=== PATIENT | female | born 1995 | race Caucasian/White ===

== ENCOUNTER 2019-11-05 04:58 | Inpatient (IN) ==
[2019-11-05] MEDS ORDERED: ZOFRAN IV PRN (05:05)
[2019-11-05] MEDS ORDERED: PEPCID PO PRN ×2 (05:05)
[2019-11-05] MEDS ORDERED: STADOL IV PRN (05:05)
[2019-11-05] MEDS ORDERED: TYLENOL PO PRN (05:05)
[2019-11-05] MEDS ORDERED: REGLAN PO PRN (05:05)
[2019-11-05] MEDS ORDERED: KEFZOL 2 GM/D5W 2 GM/50 ML IVPB IV PRN (05:05)
[2019-11-05] MEDS ORDERED: PEPCID IV PRN (05:05)
[2019-11-05] MEDS ORDERED: XYLOCAINE-MPF 1% INJ ONE (05:10)
[2019-11-05] MEDS ORDERED: SODIUM CHLORIDE 0.9% INJ SCH (05:15)
[2019-11-05] MEDS ORDERED: LR 1,000 ML IV SCH (05:15)
[2019-11-05] MEDS ORDERED: XYLOCAINE-MPF 1% INJ PRN ×2 (05:35→10:55)
[2019-11-05] MEDS ORDERED: MINERAL OIL TOP PRN ×2 (05:35→10:55)
[2019-11-05 05:39] LABS: BASO# 0.02 X1000 (0.0-0.2); BASO% 0.2 % (0.0-0.8); EOS% 1.1 % (0.0-10.0); HEMATOCRIT 37.4 % (37.0-47.0); HEMOGLOBIN 12.3 g/dL (12.0-16.0); IMM GRAN# 0.03 X1000 (0.0-0.04); IMM GRAN% 0.3 % (0.0-0.5); LYMPH# 2.43 X1000 (1.2-3.4); LYMPH% 26.1 % (20.5-51.1); MCH 32.3 PG (27-31); MCHC 32.9 g/dL (33-37); MCV 98.2 FL (81-99); MONO% 6.4 % (1.7-9.3); MPV 11.4 FL (7.4-10.4); NEUT# 6.13 X1000 (1.4-6.5); NEUT% 65.9 % (42.2-75.2); PLT 170 X1000 (130-400); RBC 3.81 XMIL (4.2-5.4); RDW 13.8 % (11.5-14.5); WBC 9.31 X1000 (4.8-10.8)
[2019-11-05 05:40] LABS: URINE SOURCE VOIDED
[2019-11-05 06:02] LABS: UR AMPHETAMINES QUAL NONE DETECTED (NONE DETECT); UR BARBITUATES QUAL NONE DETECTED (NONE DETECT); UR BENZODIAZEPIN QUAL NONE DETECTED (NONE DETECT); UR CANNABINOIDS QUAL NONE DETECTED (NONE DETECT); UR COCAINE QUAL NONE DETECTED (NONE DETECT); UR METHADONE QUAL NONE DETECTED (NONE DETECT); UR OPIATES QUAL NONE DETECTED (NONE DETECT); UR OXYCODONE QUAL NONE DETECTED (NONE DETECT); UR PCP QUAL NONE DETECTED (NONE DETECT)
[2019-11-05 06:08] LABS: BILIRUBIN URINE NEGATIVE (NEGATIVE); BLOOD URINE NEGATIVE (NEGATIVE); COLOR YELLOW; GLUCOSE URINE NEGATIVE (NEGATIVE); KETONE URINE NEGATIVE (NEGATIVE); LEUKOCYTES URINE SMALL (NEGATIVE); NITRITE URINE NEGATIVE (NEGATIVE); PROTEIN URINE TRACE mg/dL (NEGATIVE); TURBIDITY URINE HAZY (CLEAR); UROBILINOGEN URINE NORMAL (NORMAL)
[2019-11-05] MEDS: PITOCIN 30 UNITS/NS 30 UNIT/500 ML IV.SOLN IV SCH ×2 (06:20→10:50)
[2019-11-05] MEDS ORDERED: FENTANYL-BUPIV-NS 500 MCG-0.125% 250 ML EPIDURAL SCH (10:00)
[2019-11-05] MEDS ORDERED: NAROPIN 0.2% INJ ONE (10:00)
[2019-11-05] MEDS ORDERED: FENTANYL IV ONE (10:00)
[2019-11-05] MEDS ORDERED: AMBIEN PO PRN (10:55)
[2019-11-05] MEDS ORDERED: CYTOTEC PO PRN (10:55)
[2019-11-05] MEDS ORDERED: MOTRIN PO PRN (10:55)
[2019-11-05] MEDS ORDERED: ATARAX PO PRN (10:55)
[2019-11-05] MEDS ORDERED: BENADRYL IV PRN (10:55)
[2019-11-05] MEDS ORDERED: PERI MEDS (DERMOPLAST/NUPERCAINAL/TUCKS) MISC PRN (10:55)
[2019-11-05] MEDS ORDERED: NORCO-10 PO PRN (10:55)
[2019-11-05] MEDS ORDERED: M-M-R II VACCINE SUBQ ONE (10:55)
[2019-11-05] MEDS ORDERED: BENADRYL PO PRN (10:55)
[2019-11-05] MEDS ORDERED: BOOSTRIX VACCINE IM ONE (10:55)
[2019-11-05] MEDS ORDERED: PITOCIN IM PRN (10:55)
[2019-11-05] MEDS ORDERED: NORCO-5 PO PRN (10:55)
[2019-11-05] MEDS ORDERED: HYDROXYZINE IM PRN (10:55)
[2019-11-05] MEDS ORDERED: PITOCIN 30 UNITS/NS 30 UNIT/500 ML IV.SOLN IV SCH (11:00)
[2019-11-05] MEDS ORDERED: PITOCIN 20 UNITS/NS 20 UNITS/1,000 ML IV.SOLN IV SCH (11:00)
--- NOTE | 2019-11-05 11:22 | HISTORY AND PHYSICAL ---
HISTORY OF PRESENT ILLNESS: The patient is a 24-year-old, white female, G 3, P 2, at 38 and 4/7th weeks with a history of chronic hypertension, presently on labetalol 200 mg b.i.d., and pressures have been elevated the last 2 visits with today's visit having diastolic at 90 on 2 separate occasions. I discussed with patient about moving toward induction due to gestational hypertension. The patient's group B strep status was negative and her blood type is O negative. PAST MEDICAL HISTORY: Significant for high blood pressure. PAST SURGICAL HISTORY: None. PAST OB HISTORY: G 3, P 2. Spontaneous vaginal delivery x2. ANTIQUE DEALER HISTORY: Menarche at age 14. REVIEW OF SYSTEMS: All systems reviewed and noncontributory. FAMILY HISTORY: Unremarkable. SOCIAL HISTORY: Tobacco use: None. Alcohol use: None. MEDICATIONS: Labetalol 200 mg p.o. b.i.d., as well as a vitamin daily. ALLERGIES: No known drug allergies. PHYSICAL EXAMINATION: VITAL SIGNS: Height 5 feet 7 inches, weight 207 pounds, temperature 97.3 degrees, blood pressure 126/85, pulse of 82, respirations 18, heart rate in the 130s with positive [id number] variation noted. HEENT: Pupils equal, round, reactive to light and accommodation. Extraocular movements intact. Oropharynx clear. NECK: Supple. No thyromegaly. LUNGS: Clear to auscultation. HEART: Regular rate and rhythm. ABDOMEN: Bowel sounds positive. Soft, gravid, nontender. PELVIC EXAMINATION: Cervix was 2 cm dilated, 50% effaced, -2 station. EXTREMITIES: No clubbing, cyanosis, or edema noted. NEUROLOGIC: Cranial nerves 2-12 grossly intact. Motor 5/5. ASSESSMENT/PLAN: A 24-year-old, white female, 3, para 2, with chronic hypertension and gestational hypertension with is worsening. The patient will be induced due to this fact. Presently, patient is on labetalol 200 mg by mouth twice a day and she is also Rh negative. Group B strep status is negative as well. cc: Raymundo Kaminski III, MD
--- NOTE | 2019-11-05 11:28 | OPERATIVE NOTE ---
PROCEDURE DATE: 11/05/2019 DELIVERY NOTE: The patient progressed to complete and pushing, had a spontaneous vaginal delivery of a female , 5 pounds 13 ounces, with Apgars of 9 and 10, at 10:27 on 11/05/2019 over a first-degree midline episiotomy. Cord blood sample was obtained at this time. Placenta delivered intact with 3-vessel cord. First-degree midline episiotomy was repaired with 0 chromic in the usual fashion. ANESTHESIA: Epidural and 4 mL of 1% lidocaine. ESTIMATED BLOOD LOSS: 200 mL. COUNTS: All counts were correct x2. cc: Raymundo Kaminski III, MD
[2019-11-05] MEDS: PERICOLACE PO SCH (20:46)
[2019-11-06 04:46] LABS: BASO# 0.03 X1000 (0.0-0.2); BASO% 0.3 % (0.0-0.8); HEMATOCRIT 35.5 % (37.0-47.0); HEMOGLOBIN 11.4 g/dL (12.0-16.0); IMM GRAN# 0.03 X1000 (0.0-0.04); IMM GRAN% 0.3 % (0.0-0.5); LYMPH% 26.9 % (20.5-51.1); MCH 31.9 PG (27-31); MCHC 32.1 g/dL (33-37); MCV 99.4 FL (81-99); MONO# 0.72 X1000 (0.11-0.59); MONO% 7.2 % (1.7-9.3); MPV 11.6 FL (7.4-10.4); NEUT# 6.47 X1000 (1.4-6.5); NEUT% 64.3 % (42.2-75.2); PLT 145 X1000 (130-400); RBC 3.57 XMIL (4.2-5.4); RDW 13.9 % (11.5-14.5); WBC 10.05 X1000 (4.8-10.8)
[2019-11-06] MEDS: PERICOLACE PO SCH (21:59)
[2019-11-07 08:47] VITALS: BP 132/94
--- NOTE | 2019-11-07 23:57 | DISCHARGE SUMMARY ---
ADMISSION DATE: 11/05/2019 DISCHARGE DATE: 11/07/2019 The patient is a 24-year-old white female 2 para 2 who is at 38+ 4 with a history of chronic hypertension on labetalol. She was noted to have increased blood pressure. She was brought in for induction. Her GBS status was negative. Her past surgical history is unremarkable. She had two spontaneous vaginal deliveries in the past. Her family history is unremarkable. She denies use of tobacco or alcohol. She has no known drug allergies. The patient delivered a female infant 5 pounds 13 ounces with Apgars of 9 and 10 on 11/05/2019 at 10:27 over a first degree midline episiotomy. Her course was benign. The patient remained afebrile and was discharged home in excellent condition. She was discharged home on her medications and will have follow up in the office in approximately 4 weeks. She verbalized understanding of all discharge instructions and all questions were answered. cc: Raymundo Kaminski III, MD MTDD
== END 2019-11-07 12:40 | disposition home or self-care (01) | DRG 807 ==
LOC: LD 04:58
PROVIDERS: ADMIT Obstetrics & Gynecology; ATTEND Obstetrics & Gynecology